=== PATIENT | female | born 1950 | race Caucasian/White ===

== ENCOUNTER 2022-02-01 10:03 | Emergency (ER) | payer MEDICARE, OTHER, SELFPAY ==
--- NOTE | ~2022-02-01 | XR_ITS ---
XR chest 2V DATE: 02/01/2022 10:51 INDICATION: Cough, congestion TECHNIQUE: 2 views COMPARISON: 12/16/2016 two-view chest FINDINGS: There is chronic predominantly elevated left diaphragm. Heart size appears within normal limits. Is aortic ectasia and tortuosity. No hilar or mediastinal en largement is evident. No pulmonary infiltrate or consolidation, pleural effusion or pulmonary vascular congestion or pneumo thorax. Diffuse osteopenia. Thoracic dextroscoliosis. IMPRESSION: Chronic prominently elevated left diaphragm No active cardiopulmonary disease or significant change since 12/16/2006 Reviewed, dictated and finalized at location A. OLOGY TECHNICIAN
[2022-02-01 10:22] VITALS: BP 150/80; PULSE 70; RESP 20; TEMP 36.7; O2SAT 97
--- NOTE | 2022-02-01 10:42 | ED.URI ---
HPI - URI/Sore Throat General Chief Complaint: Upper Respiratory Infection Stated Complaint: congestion Source: patient Mode of arrival: ambulatory History of Present Illness HPI Narrative: This is a 71-year-old female who presented to our urgent care with complaints of chest and head congestion, uncontrollable cough with shortness of breath, and subjective fever. According to patient her symptoms started on Friday she did take at home NyQuil for her symptoms. Patient also notes she has a history of bronchitis and both she should be treated for before it gets out of hand. The patient denies , CP, palpitation, extremity numbness, lightheadedness, dizziness, constipation, diarrhea, chills, or fever. Related Data Home Medications Medication Instructions Recorded Confirmed aspirin 81 mg tablet,delayed 81 mg PO DAILY 02/01/22 02/01/22 release atorvastatin 40 mg tablet 40 mg PO DAILY 02/01/22 02/01/22 celecoxib 50 mg capsule 50 mg PO DAILY 02/01/22 02/01/22 docusate sodium 100 mg capsule 100 mg PO DAILY 02/01/22 02/01/22 gabapentin 600 mg tablet 600 mg PO BID 02/01/22 02/01/22 levothyroxine 112 mcg tablet 112 mcg PO DAILY 02/01/22 02/01/22 (Synthroid) pregabalin 100 mg capsule 100 mg PO DAILY 02/01/22 02/01/22 Allergies Allergy/AdvReac Type Severity Reaction Status Date / Time No Known Allergies Allergy Verified 02/01/22 10:13 Review of Systems Review of Systems: A 14 organ system Review of Systems was performed and pertinent positives included in the HPI, otherwise remaining ROS is negative. Exam Narrative: GENERAL: This is a well-nourished, well-developed patient, in no apparent distress. HEAD: normocephalic, atraumatic. EYES: PERRL. Sclera clear/white. Vision is grossly intact. EARS: External ears normal, auditory canals clear and without drainage, TMs normal without perforation. Hearing grossly intact. NOSE: External nose normal with no obvious nasal discharge, nares without redness, no rhinorrhea. THROAT: Mucous membranes moist, posterior pharynx clear. NECK: Neck supple, non-tender without lymphadenopathy, masses or thyromegaly. CARDIOVASCULAR: Regular rate and rhythm without murmurs, gallops, or rubs. RESPIRATORY: Expiratory wheezing GASTROINTESTINAL: Abdomen soft, non-tender, nondistended. Bowel sounds are active. No hepato-splenomegaly, or palpable masses. No guarding. SKIN: warm, intact with no suspicious lesions or rash, good texture and turgor. NEURO: awake, alert, and oriented to person, place and time. There were no obvious focal neurologic abnormalities. EXTREMITIES: Normal range of motion. No edema. No calf tenderness. Course Course Emergency Course: Patient will be treated with Tessalon Perles guaifenesin albuterol and a Z-Ander for bronchitis Level of Care: Express Care Visit Vital Signs Vital signs: Vital Signs Temperature 98.0 F 02/01/22 10:22 Pulse Rate 70 02/01/22 10:22 Respiratory Rate 20 02/01/22 10:22 Blood Pressure 150/80 H 02/01/22 10:22 Pulse Oximetry 97 02/01/22 10:22 Oxygen Delivery Room Air 02/01/22 10:22 Temperature 98.0 F 02/01/22 10:22 Pulse Rate 70 02/01/22 10:22 Respiratory Rate 20 02/01/22 10:22 Blood Pressure 150/80 H 02/01/22 10:22 Pulse Oximetry 97 02/01/22 10:22 Oxygen Delivery Room Air 02/01/22 10:22 Discharge Plan Discharge Clinical Impression: Bronchitis Patient Disposition: Home, Self-Care Condition: Stable Instructions: Antibiotic Form, Acute Bronchitis (ED) Additional Instructions: Follow-up with her primary care physician in 1-2 weeks , if her symptoms do not improve. Take all medication as prescribed. When should I call the doctor or nurse?Most people who have a cough that lasts longer than their other cold or flu symptoms do not need to see a doctor. But you should call your doctor or nurse if you have:? ?A fever higher than 100.4?F (38?C)? ?A cough that lasts longer than 10 days? ?Ches
== END 2022-02-01 11:00 | disposition home or self-care (01) ==
PROVIDERS: Emergency Provider Nurse Practitioner
DX: J40 Bronchitis, not specified as acute or chronic (principal); Z79.82 Long term (current) use of aspirin
CPT/HCPCS: 71046; 99213; G0463

== ENCOUNTER 2022-03-05 10:28 | Emergency (ER) | payer MEDICARE, OTHER, SELFPAY ==
[2022-03-05 10:34] VITALS: BP 131/87; PULSE 69; RESP 20; TEMP 36.1; O2SAT 96
--- NOTE | 2022-03-05 10:53 | ED.URI ---
HPI - URI/Sore Throat General Chief Complaint: Upper Respiratory Infection Stated Complaint: Cough,Congestion,Wheezing Time Seen by Provider: 03/05/22 10:53 Source: patient, RN notes reviewed and old records reviewed Mode of arrival: ambulatory Limitations: no limitations History of Present Illness HPI Narrative: 71 year presents to the [facility] with complaints of cough, congestion wheezing. diagnosed recently with bronchitis states she better, follow up with primary. Was on cruise last week and came back and developed similar symptoms. Related Data Home Medications Medication Instructions Recorded Confirmed aspirin 81 mg tablet,delayed 81 mg PO DAILY 02/01/22 03/05/22 release atorvastatin 40 mg tablet 40 mg PO DAILY 02/01/22 03/05/22 celecoxib 50 mg capsule 50 mg PO DAILY 02/01/22 03/05/22 levothyroxine 112 mcg tablet 112 mcg PO DAILY 02/01/22 03/05/22 (Synthroid) pregabalin 100 mg capsule 100 mg PO DAILY 02/01/22 03/05/22 Allergies Allergy/AdvReac Type Severity Reaction Status Date / Time No Known Allergies Allergy Verified 03/05/22 10:53 Review of Systems Review of Systems: All systems reviewed & are unremarkable except as noted in HPI and below Constitutional: Constitutional: Reports no additional constitutional complaints Eyes: Eyes: Reports no additional eye complaints ENT: Reports system reviewed and no additional complaints, except as documented Cardiovascular: Cardiovascular: Reports no additional cardiovascular complaints, Denies chest pain and Denies dyspnea Respiratory: Respiratory: Reports as per HPI, Reports chest congestion, Reports cough, Denies dyspnea and Reports wheezing Gastrointestinal: Gastrointestinal: Reports no additional gastrointestinal complaints, Denies abdominal pain, Denies nausea and Denies vomiting Musculoskeletal: Musculoskeletal: Reports no additional musculoskeletal complaints Integumentary/Breasts: Skin/Breast: Reports system reviewed and no additional complaints, except as docu Neurologic: Reports system reviewed and no additional complaints, except as documented Psychiatric: Psychiatric: Reports no additional psychiatric complaints Allergic/Immunologic: Allergic/Immunologic: Reports no additional allergic/immunologic complaints PMFSH Comments At the time of my signature, I reviewed and agree with the nursing past medical, surgical, social, and family history. There is no relevant family history pertinent to the patient complaint. Exam Const: General: cooperative, healthy appearing, comfortable, no acute distress, well developed, alert and well nourished Nutritional Appearance: well nourished Orientation/consciousness: patient oriented x3 Limitations: no limitations HENMT: Head: normal to inspection Ears: hearing grossly normal bilaterally and external ears normal Face/Nose/Sinus: Normal external nose present, Normal nares present, Normal nasal mucous membranes and turbinates present and normal facial exam Face and sinus: normal facial exam Mouth: Yes Normal oral and palatal mucosa present, Yes lip normal and Yes moist mucous membranes Throat: posterior oropharynx normal and uvula midline Eyes: General: appearance normal, both eyes and all related structures Alignment and Position: alignment normal Periorbital: periorbital findings normal Conjunctivae: conjunctivae normal Pupils: Equal, round and reactive pupils present EOM: EOMs intact bilaterally Neck: Neck: normal visual inspection, full ROM, no lymphadenopathy and no meningeal signs Chest: Chest palpation & inspection: normal inspection of the chest Resp: Effort & Inspection: normal respiratory effort and able to speak in complete sentences Auscultation: no crackles, no rales, no rhonchi and wheezes expiratory wheezes and throughout Cardio: Rate: regular rate Rhythm: regular rhythm Back/Spine/Pelvis: Cervical Spine: cervical ROM normal Thoracic/Lumbar Spine: No thoracic spinal tenderness Ski
== END 2022-03-05 11:28 | disposition home or self-care (01) ==
PROVIDERS: Emergency Provider Nurse Practitioner
DX: J40 Bronchitis, not specified as acute or chronic (principal); Z79.82 Long term (current) use of aspirin
CPT/HCPCS: 99213; G0463

== ENCOUNTER 2022-04-25 17:45 | Emergency (ER) | payer MEDICARE, OTHER, SELFPAY ==
--- NOTE | ~2022-04-25 | XR_ITS ---
XR chest 2V 04/25/2022 18:05 Indication: Shortness of breath. Hypertension. Procedure: PA and lateral views of the chest Comparison: 02/01/2022 Findings: Chronic elevation of the left diaphragm with large hiatal hernia. Stable cardiomediastinal silhouette. No focal air space disease, pulmonary edema, pleural effusion or suspected pneumothorax. No acute osseous abnormality. There is scoliosis. Impression: 1: No acute cardiopulmonary disease. Reviewed, dictated and finalized at location A. SALES REPRESENTATIVE Impression: 1: No acute cardiopulmonary disease.
[2022-04-25 17:47] VITALS: BP 210/114; PULSE 80; RESP 19; TEMP 36.2; O2SAT 95
--- NOTE | 2022-04-25 17:47 | ECG_ITS ---
Measurements Intervals [place] Rate: 65 P: 65 VA: 159 QRS: 69 QRSD: 87 T: 68 QT: 418 QTc: 436 Interpretive Statements SINUS RHYTHM WITH SINUS ARRHYTHMIA POSSIBLE RIGHT VENTRICULAR CONDUCTION DELAY [RSR (QR) IN V1/V2] NONSPECIFIC T-WAVE ABNORMALITY NO PREVIOUS ECG AVAILABLE FOR COMPARISON Electronically Signed On 04-25-2022 20:14:34 [employer] MACHINE OPERATOR by Noelle Hayden M.D.
[2022-04-25 17:59] LABS: Basophils Absolute Auto 0.1 K/mm3 (0.0-0.1); Basophils Percent Auto 0.9 % (0.2-1.2); Eosinophils Absolute Auto 0.4 K/mm3 (0-0.3); Eosinophils Percent Auto 5.5 % (0-4.4); Hemoglobin 14.3 g/dL (12.0-15.0); Immature Granulocyte Absolute 0.02 K/mm3 (0.00-0.031); Immature Granulocyte Percent A 0.3 % (0-0.5); Lymphocytes Absolute Auto 3.32 K/mm3 (0.9-3.2); Lymphocytes Percent Auto 42.7 % (18.3-44.2); Mean Corpuscular HGB Conc 33.3 g/dl (32-36); Mean Corpuscular Hemoglobin 32.4 pg (26-34); Mean Corpuscular Volume 97.5 fl (80-100); Neutrophils Absolute Auto 2.9 K/mm3 (1.3-6.7); Neutrophils Percent Auto 37.6 % (45.5-73.1); Platelet Count Result 271 k/mm3 (150-375); Red Blood Count 4.41 M/mm3 (4.2-5.4); Red Cell Distribution Width 16.3 % (11.5-14.5); White Blood Count 7.8 K/mm3 (4.5-10.0)
[2022-04-25 18:08] LABS: Alanine Aminotransferase 24 U/L (6-35); Albumin Level 4.5 g/dL (3.5-5.1); Alkaline Phosphatase 85 U/L (38-126); Anion Gap 5 mmol/L (8-16); Aspartate Amino Transferase 34 U/L (14-36); Bilirubin,Total 0.6 mg/dL (0.2-1.3); Blood Urea Nitrogen 19 mg/dL (7-17); Calcium 8.4 mg/dL (8.4-10.2); Carbon Dioxide 30 mmol/L (22-30); Chloride 103 mmol/L (98-107); Estimated CRCL calculation 90 ml/min; Estimated Glomerular Filt Rate > 60; Glucose 87 mg/dL (65-110); Potassium 3.6 mmol/L (3.4-5.0); Sodium 138 mmol/L (137-145)
--- NOTE | 2022-04-25 21:57 | ED.GENADULT ---
HPI - General Adult General Chief complaint: Recheck/Abnormal Lab/Rx Stated complaint: hypertension and intermittent SOB Time Seen by Provider: 04/25/22 20:30 History of Present Illness HPI narrative: is a 72-year-old female sent to the ED for hypertension. She was giving blood and she was found have a blood pressure of 199/110. She was sent to the emergency department for evaluation of hypertensive urgency. At that time she does not have chest pain, difficulty breathing or any neurologic deficits. She has no complaints at all. Patient has a close relationship with her primary care physician can get in to see him quickly. Patient also has an appointment with a folding machine feeder due to some history of dyspnea on exertion over the last 3 months. At this time she is not short of breath, she denies lower extremity edema, she denies PND orthopnea. Related Data Home Medications Medication Instructions Recorded Confirmed aspirin 81 mg tablet,delayed 81 mg PO DAILY 02/01/22 03/05/22 release atorvastatin 40 mg tablet 40 mg PO DAILY 02/01/22 03/05/22 celecoxib 50 mg capsule 50 mg PO DAILY 02/01/22 03/05/22 levothyroxine 112 mcg tablet 112 mcg PO DAILY 02/01/22 03/05/22 (Synthroid) pregabalin 100 mg capsule 100 mg PO DAILY 02/01/22 03/05/22 Allergies Allergy/AdvReac Type Severity Reaction Status Date / Time No Known Allergies Allergy Verified 04/25/22 17:45 [facility] Past Medical History Medical History (Updated 04/25/22 @ 22:03 by Rich Levin MD) HTN (hypertension) Social History Social History (Updated 04/25/22 @ 21:58 by Rich Levin MD) Social History: patient drinks alcohol occasionally, denies tobacco or drug use. Exam Narrative: APPEARANCE: No apparent distress. Head: atraumatic. EYES: EOMI, NOSE: Atraumatic NECK: Trachea midline RESPIRATORY: No increased rate of breathing, clear to auscultation bilaterally CARDIOVASCULAR: RRR, equal pulses in all extremities, no pitting edema of lower extremities ABDOMINAL: Non-distended, soft nontender no guarding or rebound MUSCULOSKELETAl: No obvious deformities NEURO: Alert. Moving 4/4 extremities SKIN:: Warm, dry. Normal color PSYCHIATRIC: Normal affect Course Vital Signs Vital signs: Vital Signs Temperature 97.2 F L 04/25/22 17:47 Pulse Rate 80 04/25/22 17:47 Respiratory Rate 19 04/25/22 17:47 Blood Pressure 210/114 H 04/25/22 17:47 Pulse Oximetry 95 04/25/22 17:47 Oxygen Delivery Room Air 04/25/22 17:47 Temperature 97.2 F L 04/25/22 17:47 Pulse Rate 80 04/25/22 17:47 Respiratory Rate 19 04/25/22 17:47 Blood Pressure 210/114 H 04/25/22 17:47 Pulse Oximetry 95 04/25/22 17:47 Oxygen Delivery Room Air 04/25/22 17:47 Medical Decision Making MDM Narrative Medical decision making narrative: -Presentation: 72-year-old female sent in from a blood bank due to hypertension. She is asymptomatic. She has had chronic dyspnea on exertion over the last 3 months since she had a viral illness. She is not currently in respiratory distress. She has no findings that are consistent with heart failure. Screening lab work and x-ray were ordered per nursing protocol. -DDX includes but is not limited to: New onset heart failure, pneumonia, COPD -Co-morbidities complicating care: hypertension -Social determinants of health: patient lives with her is Miguel A -External Chart Review: none -Hx from independent Sources: Miguel A- -Discussion of Management/Consultants: none -Independent interpretation of studies: patient's CBC was within normal limits. Metabolic panel shoulder normal kidney function. Chest x-ray showed chronic elevation of the left hemidiaphragm which could be the cause of her shortness of breath. She has appointment with folding machine feeder and this can be pursued further by them. Independent EKG interpretation: Rhythm [sinus], Rate 65, [place] -[normal], [place] -[normal], QRS [narrow], QTC [nor
--- NOTE | 2022-04-25 23:05 | PC.NURSE ---
pt and did not want to stay for DC VS, d/t wait time
== END 2022-04-25 23:05 | disposition home or self-care (01) ==
PROVIDERS: Emergency Medicine; Emergency Provider Emergency Medicine
DX: Z79.82 Long term (current) use of aspirin (principal); I10 Essential (primary) hypertension; J98.6 Disorders of diaphragm; R94.31 Abnormal electrocardiogram [ECG] [EKG]
CPT/HCPCS: 36415; 71046; 80053; 85025; 93005; 99284

== ENCOUNTER 2022-08-31 08:23 | Emergency (ER) | payer MEDICARE, OTHER, SELFPAY ==
[2022-08-31 08:43] VITALS: BP 125/84; PULSE 61; RESP 18; TEMP 36.6; O2SAT 96
--- NOTE | 2022-08-31 08:46 | ED.EYEPROB ---
HPI - Eye Problem General Chief complaint: Eye Problems Stated complaint: bilateral eye irritation Time Seen by Provider: 08/31/22 08:45 Source: patient Mode of arrival: ambulatory Limitations: no limitations History of Present Illness HPI Narrative: Patient is a 72-year-old female who presents with bilateral eye irritation, redness, discharge for 3 days. Patient states yesterday morning eyes were swollen and matted shut. Patient has been using cool compresses and swelling has resolved. Patient has been using lubricating drops with no relief. Patient takes of a daily Zyrtec and has been taking Benadryl. Denies any fever, chills, changes in vision, eye pain or contacts with pinkeye Related Data Home Medications Medication Instructions Recorded Confirmed aspirin 81 mg tablet,delayed 81 mg PO DAILY 02/01/22 08/31/22 release atorvastatin 40 mg tablet 40 mg PO DAILY 02/01/22 08/31/22 celecoxib 50 mg capsule 50 mg PO DAILY 02/01/22 08/31/22 levothyroxine 112 mcg tablet 112 mcg PO DAILY 02/01/22 08/31/22 (Synthroid) pregabalin 100 mg capsule 100 mg PO BID 02/01/22 08/31/22 Allergies Allergy/AdvReac Type Severity Reaction Status Date / Time No Known Allergies Allergy Verified 08/31/22 09:01 Review of Systems Review of Systems: All systems reviewed & are unremarkable except as noted in HPI and below Constitutional: Constitutional: Denies body ache(s), Denies fever(s), Denies headache(s), Denies malaise and Denies weakness Eyes: Eyes: Denies blurry vision, Reports eye discharge, Reports irritation, Reports itchy eyes, Denies loss of vision and Denies eye pain ENT: Denies otalgia, Denies headache(s), Denies nasal discharge, Denies sinus pain and Denies sore throat Cardiovascular: Cardiovascular: Denies chest pain, Denies irregular heart rhythm and Denies dyspnea Respiratory: Respiratory: Denies dyspnea Gastrointestinal: Gastrointestinal: Denies abdominal pain, Denies diarrhea, Denies nausea and Denies vomiting Musculoskeletal: Musculoskeletal: Denies back pain, Denies myalgias and Denies arthralgias Integumentary/Breasts: Skin/Breast: Denies pruritus and Denies rash Neurologic: Denies headache(s), Denies loss of vision and Denies weakness Psychiatric: Psychiatric: Reports no additional psychiatric complaints Allergic/Immunologic: Allergic/Immunologic: Reports itchy eyes PMFSH Past Medical History Medical History (Updated 08/31/22 @ 09:03 by Cheryl Landers APRN) HTN (hypertension) Social History Social History (Updated 04/25/22 @ 21:58 by Rich Levin MD) Social History: patient drinks alcohol occasionally, denies tobacco or drug use. Comments At time of signature, agree with nursing past medical, surgical, social and family history. There is no relevant family history pertinent to the presenting complaint. Exam Const: General: cooperative, healthy appearing, comfortable, no acute distress and well nourished Nutritional Appearance: well nourished Orientation/consciousness: patient oriented x3 Limitations: no limitations HENMT: Head: normal to inspection, normocephalic and atraumatic Ears: external ears normal Face/Nose/Sinus: Normal external nose present, normal facial exam and face symmetric Face and sinus: normal facial exam and face symmetric Mouth: Yes lip normal Eyes: General: appearance normal, both eyes and all related structures Visual Brar: normal visual brar by confrontation Alignment and Position: alignment normal and position normal Periorbital: periorbital findings normal Eyelids: eyelids normal Conjunctivae: conjunctival abnormality bilateral conjunctival injection diffuse and discharge mucoid Sclera: scleral abnormality bilateral scleral injection diffuse Pupils: Equal, round and reactive pupils present EOM: EOMs intact bilaterally Direct Ophthalmoscopy: no photophobia Other: No hyphema, no foreign body under the lids. Neck: Neck: normal visual inspecti
== END 2022-08-31 09:08 | disposition home or self-care (01) ==
PROVIDERS: Emergency Provider Nurse Practitioner Family
DX: H10.9 Unspecified conjunctivitis (principal); I10 Essential (primary) hypertension; Z79.82 Long term (current) use of aspirin
CPT/HCPCS: 99213; G0463